=== PATIENT | female | born 1960 | race Caucasian/White ===

== ENCOUNTER 2020-09-09 10:58 | Inpatient (IN) ==
[2020-09-09] MEDS ORDERED: Ondansetron 4 MG/2 ML VIAL IVP ONE (11:08)
[2020-09-09] MEDS ORDERED: Morphine Sulfate 2 MG/ML SYRINGE IVP ONE (11:08)
[2020-09-09] MEDS ORDERED: *HR* Propofol 200 MG/20 ML VIAL IVP ONE ×2 (12:15→18:42)
[2020-09-09] MEDS ORDERED: 0.9 % Sodium Chloride 1,000 ML IVC ONE (12:15)
[2020-09-09] MEDS ORDERED: *HR* FentaNYL (PF) 100 MCG/2 ML VIAL IVP ONE (12:54)
[2020-09-09] MEDS ORDERED: Naloxone 0.4 MG/ML INJ IVP PRN (13:31)
[2020-09-09] MEDS ORDERED: Ondansetron 4 MG/2 ML VIAL IVP PRN ×2 (13:31→21:11)
[2020-09-09 13:51] LABS: Basophils % 0.4 %; Eosinophils % 0.6 %; Hematocrit 35.5 % (35.3-44.9); Hemoglobin 11.6 g/dL (11.5-15.4); Immature Granulocytes % 0.3 % (0-4); Lymphocytes # 0.9 K/mcL (0.6-4.6); Lymphocytes % 12.2 %; Mean Corpuscular HGB Conc 32.7 g/dL (31.6-35.5); Mean Corpuscular Hemoglobin 30.2 pg (28.0-33.3); Mean Corpuscular Volume 92.4 fL (83.0-100.0); Monocytes # 0.4 K/mcL (0.0-1.3); Monocytes % 5.8 %; Neutrophils # 5.8 K/mcL (1.6-8.9); Platelet Count 222 K/mcL (140-400); Red Blood Count 3.84 M/mcL (3.82-4.97); Red Cell Distribution Width 12.1 % (11.5-14.5); Segmented Neutrophils % 80.7 %; White Blood Count 7.2 K/mcL (4.3-11.1)
[2020-09-09 13:58] LABS: INR 1.1; Prothrombin Time 12.8 Seconds (9.4-12.1)
[2020-09-09 14:09] LABS: BUN/Creatinine Ratio 28 (6-26); Blood Urea Nitrogen 15 mg/dL (8-23); Calcium 8.3 mg/dL (8.6-10.3); Carbon Dioxide 23 mEq/L (23-29); Chloride 109 mEq/L (98-107); Glucose 117 mg/dL (70-105); Osmolality,Calculated 288 (280-300); Potassium 3.6 mEq/L (3.5-5.1); Sodium 138 mEq/L (136-145); eGFR For African Americans > 60 (> 60); eGFR For Non-African Americans > 60 (> 60)
[2020-09-09 14:12] LABS: Activated Partial Thrombo Time 26.4 Seconds (26.0-36.0)
[2020-09-09 14:21] LABS: Magnesium 1.8 mg/dL (1.6-2.6); Troponin I < 0.03 ng/mL (< 0.04)
[2020-09-09] MEDS ORDERED: *HR* HYDROmorphone (PF) 1 MG/ML SYRINGE IVP ONE (14:57)
[2020-09-09] MEDS ORDERED: *HR* HYDROmorphone (PF) 1 MG/ML SYRINGE IVP PRN (15:04)
[2020-09-09] MEDS ORDERED: *HR* Rocuronium Bromide 50 MG/5 ML VIAL ONE (18:43)
[2020-09-09] MEDS ORDERED: *HR* Succinylcholine 200 MG/10 ML VIAL IVP ONE (18:43)
[2020-09-09] MEDS ORDERED: Ondansetron 4 MG/2 ML VIAL ONE (18:43)
[2020-09-09] MEDS ORDERED: Lidocaine -MPF 2% 2 ML VIAL ONE (18:43)
[2020-09-09] MEDS ORDERED: *HR* FentaNYL (PF) 100 MCG/2 ML VIAL ONE ×2 (18:43→22:42)
[2020-09-09] MEDS ORDERED: ROPIVACAINE/PF/NS 0.25% 1 EACH SYRINGE INTRAART ONE (21:07)
[2020-09-09] MEDS ORDERED: Ropivacaine/PF 0.5% 30 ML VIAL ONE (21:07)
[2020-09-09] MEDS ORDERED: *HR* HYDROcodone/Acet 5/325 mg TABLET PO PRN (21:11)
[2020-09-09] MEDS ORDERED: Promethazine 6.25 MG in Water for inj. (sterile) 20 ML IVPB PRN (21:11)
[2020-09-09] MEDS ORDERED: *HR* HYDROmorphone PF 0.5 MG/0.5 ML SYRINGE IVP PRN (21:11)
[2020-09-09] MEDS ORDERED: *HR* Labetalol 20 MG/4 ML SYRINGE IVP PRN (21:11)
[2020-09-09] MEDS ORDERED: *HR* Midazolam HCl 2 MG/2 ML VIAL ONE (21:15)
[2020-09-09] MEDS ORDERED: Acetaminophen IV 1,000 MG/100 ML BAG IVPB ONE (21:19)
[2020-09-09] MEDS ORDERED: Clindamycin 900 MG/50 ML 900 MG/50 ML IV.SOLN IVPB ONE (21:20)
[2020-09-09] MEDS ORDERED: Scopolamine Patch 1.5 MG PATCH.TD72 ONE (22:05)
[2020-09-09] MEDS ORDERED: *HR* HYDROMORPHONE 2 MG/ML VIAL ONE (23:07)
[2020-09-10] MEDS ORDERED: Naloxone 0.4 MG/ML INJ IVP PRN (00:11)
[2020-09-10] MEDS ORDERED: *HR* HYDROmorphone (PF) 1 MG/ML SYRINGE IVP PRN (00:11)
[2020-09-10] MEDS ORDERED: Ondansetron 4 MG/2 ML VIAL IVP PRN (00:11)
[2020-09-10 05:33] LABS: Basophils % 0.2 %; Hematocrit 37.2 % (35.3-44.9); Hemoglobin 11.8 g/dL (11.5-15.4); Immature Granulocytes % 0.7 % (0-4); Lymphocytes # 0.4 K/mcL (0.6-4.6); Lymphocytes % 7.5 %; Mean Corpuscular HGB Conc 31.7 g/dL (31.6-35.5); Mean Corpuscular Hemoglobin 29.8 pg (28.0-33.3); Mean Corpuscular Volume 93.9 fL (83.0-100.0); Monocytes # 0.1 K/mcL (0.0-1.3); Monocytes % 2.4 %; Neutrophils # 5.3 K/mcL (1.6-8.9); Platelet Count 221 K/mcL (140-400); Red Blood Count 3.96 M/mcL (3.82-4.97); Segmented Neutrophils % 89.2 %; White Blood Count 5.9 K/mcL (4.3-11.1)
[2020-09-10 05:43] LABS: Alanine Aminotransferase 10 Units/L (7-52); Albumin 3.8 g/dL (3.5-5.7); Albumin/Globulin Ratio 1.4 (1.1-2.2); Alkaline Phosphatase 76 Units/L (34-104); Aspartate Amino Transferase 18 Units/L (13-39); BUN/Creatinine Ratio 20 (6-26); Bilirubin,Total 0.7 mg/dL (0.3-1.0); Blood Urea Nitrogen 11 mg/dL (8-23); Calcium 8.5 mg/dL (8.6-10.3); Carbon Dioxide 22 mEq/L (23-29); Chloride 107 mEq/L (98-107); Globulin 2.7 g/dL (2.4-3.5); Glucose 160 mg/dL (70-105); Osmolality,Calculated 285 (280-300); Potassium 4.3 mEq/L (3.5-5.1); Sodium 136 mEq/L (136-145); Total Protein 6.5 g/dL (6.4-8.9); eGFR For African Americans > 60 (> 60); eGFR For Non-African Americans > 60 (> 60)
[2020-09-10] MEDS ORDERED: Pantoprazole 40 MG VIAL IVP SCH ×2 (06:30→09:00)
[2020-09-10] MEDS ORDERED: *HR* HYDROcodone/Acet 5/325 mg TABLET PO ONE (07:59)
[2020-09-10] MEDS: *HR* OxyCODONE/APAP 5/325 TABLET PO PRN (13:12)
[2020-09-10] MEDS ORDERED: Fluticasone Propionate Nasal 50 MCG/SPRAY BOTTLE NS PRN (14:15)
[2020-09-10] MEDS: tiZANidine 4 MG TABLET PO PRN (17:16)
[2020-09-10] MEDS: FLUoxetine 20 MG CAPSULE PO SCH (20:21)
[2020-09-11] MEDS: *HR* OxyCODONE/APAP 5/325 TABLET PO PRN ×2 (04:32→21:26)
[2020-09-11] MEDS: FLUoxetine 20 MG CAPSULE PO SCH (08:52)
[2020-09-11] MEDS: Cholecalciferol (D-3) 1,000 UNIT (25MCG) TABLET PO SCH (08:52)
[2020-09-11] MEDS: Loratadine 10 MG TABLET PO SCH (08:52)
[2020-09-11] MEDS: *HR* HYDROcodone/Acet 5/325 mg TABLET PO PRN (08:52)
[2020-09-11] MEDS: Aspirin Enteric Coated 81 MG Tablet PO SCH (08:52)
[2020-09-11] MEDS: Cyanocobalamin (B-12) 1,000 MCG TABLET PO SCH (08:53)
[2020-09-11] MEDS: Spironolactone 25 MG TABLET PO SCH (08:53)
[2020-09-11] MEDS: *HR* Heparin 5,000 UNIT/ML VIAL SQ SCH ×2 (08:57→17:05)
[2020-09-11] MEDS ORDERED: FLUoxetine 20 MG CAPSULE PO SCH (09:00)
[2020-09-11] MEDS ORDERED: methylPREDNISolone 125 MG/2 ML VIAL IVP ONE (12:17)
[2020-09-11] MEDS: tiZANidine 4 MG TABLET PO PRN (23:55)
[2020-09-12 05:47] LABS: Hematocrit 32.5 % (35.3-44.9); Hemoglobin 10.3 g/dL (11.5-15.4); Immature Granulocytes % 0.5 % (0-4); Lymphocytes # 0.9 K/mcL (0.6-4.6); Lymphocytes % 13.6 %; Mean Corpuscular HGB Conc 31.7 g/dL (31.6-35.5); Mean Corpuscular Hemoglobin 29.5 pg (28.0-33.3); Mean Corpuscular Volume 93.1 fL (83.0-100.0); Mean Platelet Volume 9.6 fL (9.4-12.4); Monocytes # 0.5 K/mcL (0.0-1.3); Monocytes % 7.6 %; Neutrophils # 5.1 K/mcL (1.6-8.9); Platelet Count 227 K/mcL (140-400); Red Blood Count 3.49 M/mcL (3.82-4.97); Red Cell Distribution Width 12.3 % (11.5-14.5); Segmented Neutrophils % 78.3 %; White Blood Count 6.5 K/mcL (4.3-11.1)
[2020-09-12] MEDS: *HR* Heparin 5,000 UNIT/ML VIAL SQ SCH ×2 (05:51→18:20)
[2020-09-12 06:10] LABS: BUN/Creatinine Ratio 33 (6-26); Blood Urea Nitrogen 16 mg/dL (8-23); Calcium 8.8 mg/dL (8.6-10.3); Carbon Dioxide 27 mEq/L (23-29); Chloride 105 mEq/L (98-107); Glucose 129 mg/dL (70-105); Magnesium 1.9 mg/dL (1.6-2.6); Osmolality,Calculated 289 (280-300); Phosphorous 3.1 mg/dL (2.7-4.5); Sodium 138 mEq/L (136-145); eGFR For African Americans > 60 (> 60); eGFR For Non-African Americans > 60 (> 60)
[2020-09-12] MEDS: Cyanocobalamin (B-12) 1,000 MCG TABLET PO SCH (09:52)
[2020-09-12] MEDS: Cholecalciferol (D-3) 1,000 UNIT (25MCG) TABLET PO SCH (09:52)
[2020-09-12] MEDS: Aspirin Enteric Coated 81 MG Tablet PO SCH (09:52)
[2020-09-12] MEDS: FLUoxetine 20 MG CAPSULE PO SCH (09:52)
[2020-09-12] MEDS: Loratadine 10 MG TABLET PO SCH (09:53)
[2020-09-12] MEDS: Spironolactone 25 MG TABLET PO SCH (09:53)
[2020-09-12] MEDS: Clindamycin 300 MG/50 ML 300 MG/50 ML IV.SOLN IVPB SCH ×2 (14:13→20:16)
[2020-09-12] MEDS: tiZANidine 4 MG TABLET PO PRN ×2 (15:04→23:17)
[2020-09-12] MEDS: *HR* HYDROcodone/Acet 5/325 mg TABLET PO PRN ×2 (15:10→23:17)
[2020-09-13] MEDS ORDERED: 0.9 % Sodium Chloride 250 ML IVC ONE (00:09)
[2020-09-13] MEDS: *HR* Heparin 5,000 UNIT/ML VIAL SQ SCH ×2 (04:57→17:36)
[2020-09-13] MEDS: Clindamycin 300 MG/50 ML 300 MG/50 ML IV.SOLN IVPB SCH (04:57)
[2020-09-13] MEDS: *HR* HYDROcodone/Acet 5/325 mg TABLET PO PRN ×3 (05:13→20:19)
[2020-09-13] MEDS: Loratadine 10 MG TABLET PO SCH (10:00)
[2020-09-13] MEDS: Cholecalciferol (D-3) 1,000 UNIT (25MCG) TABLET PO SCH (10:00)
[2020-09-13] MEDS: Aspirin Enteric Coated 81 MG Tablet PO SCH (10:00)
[2020-09-13] MEDS: FLUoxetine 20 MG CAPSULE PO SCH (10:00)
[2020-09-13] MEDS: Cyanocobalamin (B-12) 1,000 MCG TABLET PO SCH (10:00)
[2020-09-13] MEDS: Spironolactone 25 MG TABLET PO SCH (10:01)
[2020-09-14] MEDS: tiZANidine 4 MG TABLET PO PRN (00:32)
[2020-09-14] MEDS: *HR* Heparin 5,000 UNIT/ML VIAL SQ SCH ×2 (05:20→16:37)
[2020-09-14 06:16] LABS: Hematocrit 33.7 % (35.3-44.9); Hemoglobin 10.8 g/dL (11.5-15.4)
[2020-09-14] MEDS: Loratadine 10 MG TABLET PO SCH (07:55)
[2020-09-14] MEDS: Cholecalciferol (D-3) 1,000 UNIT (25MCG) TABLET PO SCH (07:55)
[2020-09-14] MEDS: Spironolactone 25 MG TABLET PO SCH (07:55)
[2020-09-14] MEDS: Aspirin Enteric Coated 81 MG Tablet PO SCH (07:55)
[2020-09-14] MEDS: FLUoxetine 20 MG CAPSULE PO SCH (07:56)
[2020-09-14] MEDS: Cyanocobalamin (B-12) 1,000 MCG TABLET PO SCH (07:56)
[2020-09-14] MEDS: *HR* HYDROcodone/Acet 5/325 mg TABLET PO PRN ×3 (09:04→22:00)
[2020-09-15] MEDS: *HR* HYDROcodone/Acet 5/325 mg TABLET PO PRN ×2 (02:48→15:39)
[2020-09-15] MEDS: *HR* Heparin 5,000 UNIT/ML VIAL SQ SCH ×2 (05:39→17:20)
[2020-09-15] MEDS: Aspirin Enteric Coated 81 MG Tablet PO SCH (08:08)
[2020-09-15] MEDS: Spironolactone 25 MG TABLET PO SCH (08:08)
[2020-09-15] MEDS: Cholecalciferol (D-3) 1,000 UNIT (25MCG) TABLET PO SCH (08:08)
[2020-09-15] MEDS: Cyanocobalamin (B-12) 1,000 MCG TABLET PO SCH (08:08)
[2020-09-15] MEDS: FLUoxetine 20 MG CAPSULE PO SCH (08:08)
[2020-09-15] MEDS: Loratadine 10 MG TABLET PO SCH (08:08)
[2020-09-15] MEDS: Sennosides/Docusate Sodium TABLET PO SCH (19:59)
[2020-09-16] MEDS: *HR* HYDROcodone/Acet 5/325 mg TABLET PO PRN ×4 (00:14→21:50)
[2020-09-16] MEDS: *HR* Heparin 5,000 UNIT/ML VIAL SQ SCH ×2 (06:05→17:17)
[2020-09-16] MEDS: Aspirin Enteric Coated 81 MG Tablet PO SCH (07:22)
[2020-09-16] MEDS: FLUoxetine 20 MG CAPSULE PO SCH (07:22)
[2020-09-16] MEDS: Spironolactone 25 MG TABLET PO SCH (07:22)
[2020-09-16] MEDS: Sennosides/Docusate Sodium TABLET PO SCH ×2 (07:22→19:54)
[2020-09-16] MEDS: Cholecalciferol (D-3) 1,000 UNIT (25MCG) TABLET PO SCH (07:22)
[2020-09-16] MEDS: Cyanocobalamin (B-12) 1,000 MCG TABLET PO SCH (07:23)
[2020-09-16] MEDS: Loratadine 10 MG TABLET PO SCH (07:23)
[2020-09-17] MEDS: *HR* Heparin 5,000 UNIT/ML VIAL SQ SCH ×2 (04:57→18:15)
[2020-09-17] MEDS: *HR* HYDROcodone/Acet 5/325 mg TABLET PO PRN ×3 (04:57→22:01)
[2020-09-17] MEDS: Aspirin Enteric Coated 81 MG Tablet PO SCH (08:43)
[2020-09-17] MEDS: Loratadine 10 MG TABLET PO SCH (08:43)
[2020-09-17] MEDS: Spironolactone 25 MG TABLET PO SCH (08:43)
[2020-09-17] MEDS: Sennosides/Docusate Sodium TABLET PO SCH ×2 (08:43→20:38)
[2020-09-17] MEDS: Cholecalciferol (D-3) 1,000 UNIT (25MCG) TABLET PO SCH (08:43)
[2020-09-17] MEDS: FLUoxetine 20 MG CAPSULE PO SCH (08:44)
[2020-09-17] MEDS: Cyanocobalamin (B-12) 1,000 MCG TABLET PO SCH (08:44)
[2020-09-18] MEDS: *HR* HYDROcodone/Acet 5/325 mg TABLET PO PRN ×3 (01:52→20:50)
[2020-09-18] MEDS: *HR* Heparin 5,000 UNIT/ML VIAL SQ SCH ×2 (05:22→16:29)
[2020-09-18] MEDS: Sennosides/Docusate Sodium TABLET PO SCH ×2 (08:25→20:48)
[2020-09-18] MEDS: Loratadine 10 MG TABLET PO SCH (08:26)
[2020-09-18] MEDS: Spironolactone 25 MG TABLET PO SCH (08:26)
[2020-09-18] MEDS: Cyanocobalamin (B-12) 1,000 MCG TABLET PO SCH (08:26)
[2020-09-18] MEDS: Aspirin Enteric Coated 81 MG Tablet PO SCH (08:26)
[2020-09-18] MEDS: Cholecalciferol (D-3) 1,000 UNIT (25MCG) TABLET PO SCH (08:26)
[2020-09-18] MEDS: FLUoxetine 20 MG CAPSULE PO SCH (08:26)
[2020-09-19] MEDS: *HR* Heparin 5,000 UNIT/ML VIAL SQ SCH ×2 (06:09→17:11)
[2020-09-19] MEDS: *HR* HYDROcodone/Acet 5/325 mg TABLET PO PRN ×4 (06:11→21:20)
[2020-09-19] MEDS: Cyanocobalamin (B-12) 1,000 MCG TABLET PO SCH (07:43)
[2020-09-19] MEDS: Spironolactone 25 MG TABLET PO SCH (07:43)
[2020-09-19] MEDS: Loratadine 10 MG TABLET PO SCH (07:43)
[2020-09-19] MEDS: FLUoxetine 20 MG CAPSULE PO SCH (07:43)
[2020-09-19] MEDS: Cholecalciferol (D-3) 1,000 UNIT (25MCG) TABLET PO SCH (07:43)
[2020-09-19] MEDS: Sennosides/Docusate Sodium TABLET PO SCH ×2 (07:43→21:20)
[2020-09-19] MEDS: Aspirin Enteric Coated 81 MG Tablet PO SCH (07:43)
[2020-09-20] MEDS: *HR* Heparin 5,000 UNIT/ML VIAL SQ SCH ×2 (06:13→16:27)
[2020-09-20] MEDS: *HR* HYDROcodone/Acet 5/325 mg TABLET PO PRN ×3 (06:17→20:49)
[2020-09-20] MEDS: Cyanocobalamin (B-12) 1,000 MCG TABLET PO SCH (07:51)
[2020-09-20] MEDS: Cholecalciferol (D-3) 1,000 UNIT (25MCG) TABLET PO SCH (07:51)
[2020-09-20] MEDS: Loratadine 10 MG TABLET PO SCH (07:51)
[2020-09-20] MEDS: Aspirin Enteric Coated 81 MG Tablet PO SCH (07:51)
[2020-09-20] MEDS: FLUoxetine 20 MG CAPSULE PO SCH (07:51)
[2020-09-20] MEDS: Sennosides/Docusate Sodium TABLET PO SCH ×2 (07:51→20:49)
[2020-09-20] MEDS: Spironolactone 25 MG TABLET PO SCH (07:51)
[2020-09-21] MEDS: *HR* Heparin 5,000 UNIT/ML VIAL SQ SCH ×2 (05:56→18:23)
[2020-09-21] MEDS: *HR* HYDROcodone/Acet 5/325 mg TABLET PO PRN ×3 (05:56→19:56)
[2020-09-21] MEDS: Cholecalciferol (D-3) 1,000 UNIT (25MCG) TABLET PO SCH (09:23)
[2020-09-21] MEDS: FLUoxetine 20 MG CAPSULE PO SCH (09:23)
[2020-09-21] MEDS: Cyanocobalamin (B-12) 1,000 MCG TABLET PO SCH (09:24)
[2020-09-21] MEDS: Aspirin Enteric Coated 81 MG Tablet PO SCH (09:24)
[2020-09-21] MEDS: Spironolactone 25 MG TABLET PO SCH (09:24)
[2020-09-21] MEDS: Loratadine 10 MG TABLET PO SCH (09:24)
[2020-09-21] MEDS: Sennosides/Docusate Sodium TABLET PO SCH ×2 (09:27→20:33)
[2020-09-22] MEDS: *HR* HYDROcodone/Acet 5/325 mg TABLET PO PRN ×4 (03:24→23:02)
[2020-09-22] MEDS: *HR* Heparin 5,000 UNIT/ML VIAL SQ SCH ×2 (05:51→17:41)
[2020-09-22] MEDS: Cyanocobalamin (B-12) 1,000 MCG TABLET PO SCH (08:47)
[2020-09-22] MEDS: Cholecalciferol (D-3) 1,000 UNIT (25MCG) TABLET PO SCH (08:47)
[2020-09-22] MEDS: Loratadine 10 MG TABLET PO SCH (08:47)
[2020-09-22] MEDS: Sennosides/Docusate Sodium TABLET PO SCH ×2 (08:48→20:41)
[2020-09-22] MEDS: Spironolactone 25 MG TABLET PO SCH (08:48)
[2020-09-22] MEDS: FLUoxetine 20 MG CAPSULE PO SCH (08:48)
[2020-09-22] MEDS: Aspirin Enteric Coated 81 MG Tablet PO SCH ×2 (08:48→20:33)
[2020-09-23] MEDS: *HR* Heparin 5,000 UNIT/ML VIAL SQ SCH ×2 (04:29→16:41)
[2020-09-23] MEDS: FLUoxetine 20 MG CAPSULE PO SCH (09:03)
[2020-09-23] MEDS: Spironolactone 25 MG TABLET PO SCH (09:03)
[2020-09-23] MEDS: Cyanocobalamin (B-12) 1,000 MCG TABLET PO SCH (09:03)
[2020-09-23] MEDS: Cholecalciferol (D-3) 1,000 UNIT (25MCG) TABLET PO SCH (09:03)
[2020-09-23] MEDS: Sennosides/Docusate Sodium TABLET PO SCH ×2 (09:03→20:13)
[2020-09-23] MEDS: Loratadine 10 MG TABLET PO SCH (09:04)
[2020-09-23] MEDS: Aspirin Enteric Coated 81 MG Tablet PO SCH (09:05)
[2020-09-23] MEDS: *HR* HYDROcodone/Acet 5/325 mg TABLET PO PRN (13:34)
[2020-09-23] MEDS: tiZANidine 4 MG TABLET PO PRN (16:41)
[2020-09-24] MEDS: tiZANidine 4 MG TABLET PO PRN ×2 (00:41→23:00)
[2020-09-24] MEDS: *HR* Heparin 5,000 UNIT/ML VIAL SQ SCH ×2 (05:15→17:10)
[2020-09-24] MEDS: Cyanocobalamin (B-12) 1,000 MCG TABLET PO SCH (07:52)
[2020-09-24] MEDS: Cholecalciferol (D-3) 1,000 UNIT (25MCG) TABLET PO SCH (07:52)
[2020-09-24] MEDS: Loratadine 10 MG TABLET PO SCH (07:52)
[2020-09-24] MEDS: Aspirin Enteric Coated 81 MG Tablet PO SCH (07:52)
[2020-09-24] MEDS: FLUoxetine 20 MG CAPSULE PO SCH (07:52)
[2020-09-24] MEDS: Sennosides/Docusate Sodium TABLET PO SCH ×2 (07:52→20:26)
[2020-09-24] MEDS: Spironolactone 25 MG TABLET PO SCH (07:52)
[2020-09-24] MEDS: *HR* HYDROcodone/Acet 5/325 mg TABLET PO PRN (20:25)
[2020-09-25] MEDS: *HR* HYDROcodone/Acet 5/325 mg TABLET PO PRN ×2 (01:15→08:07)
[2020-09-25] MEDS: *HR* Heparin 5,000 UNIT/ML VIAL SQ SCH (05:50)
[2020-09-25 06:48] VITALS: BP 113/70
[2020-09-25] MEDS: Cholecalciferol (D-3) 1,000 UNIT (25MCG) TABLET PO SCH (07:39)
[2020-09-25] MEDS: Spironolactone 25 MG TABLET PO SCH (07:39)
[2020-09-25] MEDS: Sennosides/Docusate Sodium TABLET PO SCH (07:39)
[2020-09-25] MEDS: FLUoxetine 20 MG CAPSULE PO SCH (07:40)
[2020-09-25] MEDS: Cyanocobalamin (B-12) 1,000 MCG TABLET PO SCH (07:40)
[2020-09-25] MEDS: Loratadine 10 MG TABLET PO SCH (07:40)
[2020-09-25] MEDS: Aspirin Enteric Coated 81 MG Tablet PO SCH (07:41)
== END 2020-09-25 12:56 | disposition home health service (06) | DRG 313 ==
LOC: EMEROOARM 10:58 → 3NENU 10:58 → SUATTDRO 13:04 → 3NENU 13:29 → SUATTDRO 09-12 14:40 → 3NENU 09-15 10:28
PROVIDERS: ADMIT Internal Medicine; ATTEND Internal Medicine